=== PATIENT | female | born 1975 | race Caucasian/White ===

== ENCOUNTER 2020-01-09 16:25 | Emergency (ER) | payer BC, OTHER ==
--- NOTE | 2020-01-09 17:46 | EDM.PDOC ---
ED HPI GENERAL MEDICAL PROBLEM - General Chief Complaint: Respiratory Problem Stated Complaint: EXPOSED TO COVID 19 AND HAVING SYMPTOMS Time Seen by Provider: 01/09/20 16:41 Source of Information: Reports: Patient History Limitations: Reports: No Limitations - History of Present Illness INITIAL COMMENTS - FREE TEXT/NARRATIVE: The patient presents with chest pain and shortness of breath. She also has a sore throat and low grade fever. She had 100 at home. She has no temp here. She has no real cough. She has may have been exposed through a coworker who was exposed from a friend. She has no abdominal pain, nausea or vomiting. She has no health problems. Onset: Gradual Duration: Day(s): Location: Reports: Chest Quality: Reports: Pressure Severity: Mild Improves with: Reports: None Worsens with: Reports: None Associated Symptoms: Reports: Chest Pain, Shortness of Breath. 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: Neurological History: Reports: None Psychiatric History: Reports: None Hematologic History: Reports: None Immunologic History: Reports: None Oncologic (Cancer) History: Reports: None Dermatologic History: Reports: None - Infectious Disease History Infectious Disease History: Reports: None - Past Surgical History HEENT Surgical History: Reports: Tonsillectomy GI Surgical History: Reports: Other (See Below) Other GI Surgeries/Procedures: Abdominoplasty Female Surgical History: Reports: Section Endocrine Surgical History: Reports: Thyroidectomy Musculoskeletal Surgical History: Reports: Arthroscopic Knee Social & Family History - Tobacco Use Smoking Status *Q: Never Smoker - Caffeine Use Caffeine Use: Reports: Coffee - Recreational Drug Use Recreational Drug Use: No ED ROS GENERAL - Review of Systems Review Of Systems: See Below Constitutional: Reports: Fever HEENT: Reports: No Symptoms Respiratory: Reports: Shortness of Breath. Denies: Cough Cardiovascular: Reports: No Symptoms Endocrine: Reports: No Symptoms GI/Abdominal: Reports: No Symptoms : Reports: No Symptoms Musculoskeletal: Reports: No Symptoms ED EXAM, GENERAL - Physical Exam Exam: See Below Exam Limited By: No Limitations General Appearance: Alert, No Apparent Distress Ears: Normal External Exam Nose: Normal Inspection Head: Atraumatic, Normocephalic Neck: Normal Inspection Respiratory/Chest: No Respiratory Distress, Lungs Clear, Normal Breath Sounds Cardiovascular: Regular Rate, Rhythm, No Edema, No Murmur GI/Abdominal: Soft, Non-Tender, No Organomegaly, No Mass Back Exam: Normal Inspection EKG INTERPRETATION EKG Date: 01/09/20 Time: 17:21 Rhythm: NSR Rate (Beats/Min): 62 [place]: Normal P-Wave: Present QRS: Normal ST-T: Normal QT: Normal Course - Vital Signs Last Recorded V/S: Last Vital Signs Temp 98.1 F 01/09/20 16:43 Pulse 70 01/09/20 16:43 Resp 20 01/09/20 16:43 BP 137/76 01/09/20 16:43 Pulse Ox 96 01/09/20 16:43 - Orders/Labs/Meds Orders: Active Orders 24 hr Category Date Time Status Cardiac Monitoring [RC] . DIRECTED Care 01/09/20 17:01 Active EKG Documentation Completion [RC] STAT Care 01/09/20 17:01 Active CORONAVIRUS COVID-19 PCR PHL [MREF] Stat Lab 01/09/20 17:02 Received Isolation [COMM] Routine Oth 01/09/20 17:01 Ordered Isolation [COMM] Routine Oth 01/09/20 17:02 Ordered Labs: Laboratory Tests 01/09/20 01/09/20 01/09/20 Range/Units 17:15 17:15 17:15 WBC 5.86 (3.98-10.04) K/mm3 RBC 4.29 (3.98-5.22) M/mm3 Hgb 12.9 (11.2-15.7) gm/dl Hct 39.4 (34.1-44.9) % MCV 91.8 (79.4-94.8) fl MCH 30.1 (25.6-32.2) pg MCHC 32.7 (32.2-35.5) g/dl RDW Std Deviation 41.0 (36.4-46.3) fL Plt Count 227 (182-369) K/mm3 MPV 8.2 L (9.4-12.3) fl Neut % (Auto) 50.2 (34.0-71.1) % Lymph % (Auto) 36.3 (19.3-51.7) % [place] % (Auto) 12.1 (4.7-12.5) % Eos % (Auto) 1.2 (0.7-5.8) Baso % (Auto) 0.2 (0.1-1.2) % Neut # (Auto) 2.94 (1.56-6.13) K/mm3 Lymph # (Auto) 2.13 (1.18-3.74) K/mm3 [place] # (Auto) 0.71 H (0.24-0.36) K/mm3 Eos # (Auto) 0.07 (0.04-0.36) K/mm3 Baso # (Auto) 0.01 (0.01-0.08) K/mm3 D-Dimer, Quantitative 0.20 (0.19-0.50) mg/L Sodium 143 (136-145) mEq/L Potassium 4.1 (3.5-5.1) mEq/L Chloride 106 (98-107) mEq/L Carbon Dioxide 26 (21-32) mEq/L Anion Gap 15.1 H (5-15) BUN 16 (7-18) mg/dL Creatinine 0.9 (0.55-1.02) mg/dL Est Cr Clr Drug Dosing 72.53 mL/min Estimated GFR (MDRD) > 60 (>60) mL/min BUN/Creatinine Ratio 17.8 (14-18) Glucose 92 (74-106) mg/dL Calcium 9.3 (8.5-10.1) mg/dL Total Bilirubin 1.1 H (0.2-1.0) mg/dL AST 15 (15-37) U/L ALT 23 (14-59) U/L Alkaline Phosphatase 62 (46-116) U/L Troponin I < 0.017 (0.00-0.056) ng/mL Total Protein 7.4 (6.4-8.2) g/dl Albumin 4.3 (3.4-5.0) g/dl Globulin 3.1 gm/dL Albumin/Globulin Ratio 1.4 (1-2) - Re-Assessments/Exams Free Text/Narrative Re-Assessment/Exam: 01/09/20 19:04 I ordered an EKG, CXR, labs, influenza and RSV. I also tested her for the COVID 19. Her EKG shows a NSR with no acute changes. Her CXR looks good. Her CBC and CMP look good. Her troponin is negative. Her influenza and RSV are negative. Departure - Departure Time of Disposition: 19:10 Disposition: Home, Self-Care 01 Condition: Good Clinical Impression: Viral URI - Discharge Information *PRESCRIPTION DRUG MONITORING PROGRAM REVIEWED*: Not Applicable *COPY OF PRESCRIPTION DRUG MONITORING REPORT IN PATIENT ISELA: Not Applicable Referrals: PCP,Not In Area [Primary Care Provider] - Forms: ED Department Discharge Additional Instructions: Drink plenty of fluids. Take tylenol or motrin for any fever or pain. We will call you with the results in 1 week. Please return if you are worse. Sepsis Event Note - Evaluation Sepsis Screening Result: No Definite Risk - Focused Exam Vital Signs: Vital Signs Temp Pulse Resp BP Pulse Ox 01/09/20 16:43 98.1 F 70 20 137/76 96 Date Exam was Performed: 01/09/20 Time Exam was Performed: 19:02 - My Orders Last 24 Hours: My Active Orders 01/09/20 17:01 Cardiac Monitoring [RC] . DIRECTED EKG Documentation Completion [RC] STAT Isolation [COMM] Routine 01/09/20 17:02 CORONAVIRUS COVID-19 PCR PHL [MREF] Stat Isolation [COMM] Routine - Assessment/Plan Last 24 Hours: My Active Orders 01/09/20 17:01 Cardiac Monitoring [RC] . DIRECTED EKG Documentation Completion [RC] STAT Isolation [COMM] Routine 01/09/20 17:02 CORONAVIRUS COVID-19 PCR PHL [MREF] Stat Isolation [COMM] Routine
--- NOTE | 2020-01-09 18:02 | CR ---
Chest: Portable view of the chest was obtained. Comparison: No previous chest x-ray. Heart size and mediastinum are normal. Lungs are clear with no acute parenchymal change. Bony structures are unremarkable. Impression: 1. Nothing acute is seen on portable chest x-ray. Diagnostic code #1 This report was dictated in MDT
== END 2020-01-09 19:25 | disposition home or self-care (01) ==
LOC: JD.ED 16:25
DX: J06.9 Acute upper respiratory infection, unspecified (principal)
CPT/HCPCS: 36415; 71045; 80053; 84484; 85025; 85379; 87804; 87807; 93005; 99285; U0001

== ENCOUNTER 2024-02-13 22:18 | Emergency (ER) | payer OTHER ==
[2024-02-13 22:53] LABS: BASOPHILS ABSOLUTE AUTO 0.1 K/mm3 (0.0-0.2); BASOPHILS PERCENT AUTO 0.5 % (0.0-1.0); EOSINOPHILS ABSOLUTE AUTO 0.2 K/mm3 (0.0-0.4); EOSINOPHILS PERCENT AUTO 2.3 % (0.0-6.0); HEMATOCRIT 41.6 % (37.0-47.0); IMMATURE GRAN ABSOLUTE AUTO 0.02 K/mm3 (0.00-0.05); IMMATURE GRAN PERCENT AUTO 0.2 % (0.0-0.4); LYMPHOCYTES ABSOLUTE AUTO 2.2 K/mm3 (1.0-4.8); LYMPHOCYTES PERCENT AUTO 23.1 % (24.0-44.0); MEAN CORPUSCULAR HEMOGLOBIN 30.4 pg (28.0-32.0); MEAN CORPUSCULAR HGB CONC 33.7 g/dl (32.0-36.0); MEAN CORPUSCULAR VOLUME 90.4 fl (83.0-99.0); MEAN PLATELET VOLUME 8.4 fl (9.4-12.3); MONOCYTES ABSOLUTE AUTO 0.9 K/mm3 (0.0-0.8); MONOCYTES PERCENT AUTO 9.7 % (0.0-8.0); NEUTROPHILS PERCENT AUTO 64.2 % (41.0-71.0); PLATELET COUNT,PLT 254 K/mm3 (150-400); WHITE BLOOD CELL COUNT,WBC 9.31 K/mm3 (3.9-11.3)
[2024-02-13] MEDS: Metoclopramide 10 MG/2 ML SDV IVPUSH ONE (23:04)
[2024-02-13] MEDS: Sodium Chloride 0.9% 1,000 ML IV ONE (23:04)
[2024-02-13 23:14] LABS: A/G RATIO 1.3 (1-2); ALANINE AMINOTRANSFERASE,ALT 25 U/L (14-59); ALBUMIN 4.6 g/dl (3.4-5.0); ALKALINE PHOSPHATASE 55 U/L (46-116); ANION GAP 16.5 (5-15); ASPARTATE AMNIOTRANSFERASE,AST 29 U/L (15-37); BILIRUBIN TOTAL 1.8 mg/dL (0.2-1.0); BLOOD UREA NITROGEN,BUN 17 mg/dL (7-18); CALCIUM 9.8 mg/dL (8.5-10.1); CARBON DIOXIDE,CO2 25 mEq/L (21-32); CHLORIDE,CL 101 mEq/L (98-107); EST CRCL DRUG DOSING (CG) 57.53 mL/min; ESTIMATED GFR 70 mL/min (>60); GLUCOSE RANDOM 88 mg/dL (70-99); LIPASE 24 U/L (16-77); POTASSIUM,K 3.5 mEq/L (3.5-5.1); PROTEIN TOTAL,TP 8.2 g/dl (6.4-8.2); SODIUM,NA 139 mEq/L (136-145)
[2024-02-13 23:21] LABS: TROPONIN I HIGH SENSITIVITY < 4 pg/mL (<=51)
[2024-02-13 23:39] LABS: APPEARANCE,URINE CLEAR (Clear); BILIRUBIN,URINE 1+ (Negative); COLOR,URINE YELLOW (Yellow); GLUCOSE,URINE NEGATIVE (Negative); KETONES,URINE 4+ (Negative); LEUKOCYTE ESTERASE,URINE NEGATIVE (Negative); NITRITE,URINE NEGATIVE (Negative); OCCULT BLOOD,URINE 1+ (Negative); PROTEIN,URINE 1+ (Negative); UROBILINOGEN,URINE 0.2 (0.2-1.0)
[2024-02-13 23:50] LABS: BACTERIA,URINE FEW /hpf (FEW); MUCUS,URINE MODERATE /hpf (FEW); WBC,URINE 0-5 /hpf (0-5)
== END 2024-02-14 02:03 | disposition home or self-care (01) ==
LOC: JD.ED 22:18
DX: R11.2 Nausea with vomiting, unspecified (principal)
CPT/HCPCS: 36415; 80053; 81001; 82550; 83690; 84484; 84703; 85025; 93005; 96361; 96374; 99284; J2765; J7030; 93010; 99283

== ENCOUNTER 2025-04-13 00:40 | Emergency (ER) | payer OTHER ==
[2025-04-13] MEDS: Diphtheria,Pertussis(Acell),Tetanus Vaccine 0.5 ML Syringe IM ONE (02:40)
== END 2025-04-13 02:47 | disposition home or self-care (01) ==
LOC: JD.ED 00:40
DX: S01.112A Laceration without foreign body of left eyelid and periocular area, initial encounter (principal); Z79.890 Hormone replacement therapy; Z79.899 Other long term (current) drug therapy; Z23 Encounter for immunization; W01.198A Fall on same level from slipping, tripping and stumbling with subsequent striking against other object, initial encounter; Y93.89 Activity, other specified
CPT/HCPCS: 12011; 90471; 90715; 99283-25